=== PATIENT | male | born 1985 | race Two or more races ===

== ENCOUNTER 2022-11-19 13:06 | Emergency (ER) | payer MEDICAID ==
[~2022-11-19] VITALS: Ht 172.7 cm; Wt 70.5 kg
[2022-11-19 13:14] VITALS: BP 138/95
== END 2022-11-19 15:18 | disposition left against medical advice (07) ==
LOC: EDBD 13:06 → ER 13:06
DX: R10.33 Periumbilical pain (principal); Z53.21 Procedure and treatment not carried out due to patient leaving prior to being seen by health care provider